=== PATIENT | male | born 1945 | race Caucasian/White ===

== ENCOUNTER 2018-07-23 14:45 | Observation (INO) | payer OTHER ==
[2018-07-23 16:52] LABS: BASO # 0.01 K/mm3 (0.0-2.0); BASO % 0.1 % (0.0-3.0); EOS % 0.4 % (1.5-5.0); GRAN # 5.56 (1.4-6.5); GRAN % 79.9 % (50.0-68.0); HEMOGLOBIN 13.8 g/dL (14.0-18.0); LYMPH # 1.2 (1.2-3.4); LYMPH % 16.6 % (22.0-35.0); MEAN CORPUSCULAR HEMOGLOBIN 30.9 pg (25.0-35.0); MEAN CORPUSCULAR HGB CONC 33.3 g/dl (31.0-37.0); MEAN PLATELET VOLUME 9.9 fl (7.0-11.0); MONO # 0.2 (0.1-0.6); RBC 4.46 10^6/uL (3.5-6.1); RED CELL DISTRIBUTION WIDTH 13.5 % (11.5-14.5); URINE BILIRUBIN NEGATIVE (NEGATIVE); URINE BLOOD NEGATIVE (NEGATIVE); URINE GLUCOSE (UA) NEGATIVE (NEGATIVE); URINE LEUKOCYTE ESTERASE NEGATIVE Leu/uL (NEGATIVE); URINE PROTEIN NEGATIVE mg/dL (<30 mg/dL); URINE UROBILINOGEN 0.2 E.U./dL (<1 E.U./dL)
[2018-07-23 16:53] LABS: INR 0.98; PARTIAL THROMBOPLASTIN TIME 27.8 Seconds (25.1-36.5); PROTHROMBIN TIME 11.2 SECONDS (9.4-12.5); URINE APPEARANCE CLEAR (CLEAR); URINE COLOR LIGHT YELLOW (YELLOW)
[2018-07-23 16:55] LABS: ALB/GLOB RATIO 1.1 (1.1-1.8); ALBUMIN 4.2 g/dL (3.0-4.8); ALT/SGPT 40 U/L (7-56); AST/SGOT 32 U/L (17-59); BLOOD UREA NITROGEN 17 mg/dL (7-21); CALCIUM 9.5 mg/dL (8.4-10.5); GFR NON-AFRICAN AMERICAN 59
[2018-07-23 17:05] LABS: TROPONIN I < 0.01 ng/mL
--- NOTE | 2018-07-23 17:05 | ED PDOC ---
Arrival/HPI - General Chief Complaint: Dizziness/Lightheaded Time Seen by Provider: 07/23/18 15:58 Historian: Patient - History of Present Illness Narrative History of Present Illness (Text): 07/23/18 17:17 73-year-old male with no past medical history presents today with dizziness and nausea and vomiting that started prior to arrival. Patient states after eating I he was feeling dizzy and nauseous and had an episode of vomiting. Patient states he was walking in the mall and had to sit down because he was so dizzy he felt off balance. He states he felt like he was going to fall down states he felt like he was drunk. Patient denies chest pain or shortness of breath. Denies abdominal pain. No fevers or chills. No neck or back pain. Past Medical History - Provider Review Nursing Documentation Reviewed: Yes - Travel History Have you recently traveled outside [place] w/in the past 3 mons?: No - Tetanus Immunization Tetanus Immunization: Unknown - Psychiatric Hx Substance Use: No - Anesthesia Hx Anesthesia: No Hx Anesthesia Reactions: No Hx Malignant Hyperthermia: No Family/Social History - Physician Review Nursing Documentation Reviewed: Yes Family/Social History: Unknown Family HX Smoking Status: Light Smoker < 10 Cigarettes Daily Hx Alcohol Use: No Hx Substance Use: No Allergies/Home Meds Allergies/Adverse Reactions: Allergies No Known Allergies Allergy (Verified 07/23/18 14:52) Home Medications: Home Meds Medication Instructions Recorded Confirmed No Known Home Med 07/23/18 07/23/18 Review of Systems - Review of Systems Constitutional: absent: Fatigue, Fevers Respiratory: absent: SOB, Cough Cardiovascular: absent: Chest Pain, Palpitations Gastrointestinal: Nausea, Vomiting. absent: Abdominal Pain, Constipation, Diarrhea Genitourinary Male: absent: Dysuria, Frequency, Hematuria Musculoskeletal: absent: Arthralgias, Back Pain, Neck Pain Skin: absent: Rash, Pruritis Neurological: Dizziness. absent: Headache Psychiatric: absent: Anxiety, Depression Physical Exam Vital Signs Reviewed: Yes Vital Signs Temp Pulse Resp BP Pulse Ox 07/23/18 14:46 97.7 F 63 18 158/77 H 100 Temperature: Afebrile Blood Pressure: Hypertensive Pulse: Regular Respiratory Rate: Normal Appearance: Positive for: Well-Appearing, Non-Toxic, Comfortable Pain Distress: None Mental Status: Positive for: Alert and Oriented X 3 - Systems Exam Head: Present: Atraumatic Pupils: Present: PERRL Extroacular Muscles: Present: EOMI Conjunctiva: Present: Normal Ears: Present: Normal, NORMAL TM Mouth: Present: Moist Mucous Membranes Pharnyx: Present: Normal. No: ERYTHEMA Nose (External): Present: Atraumatic Neck: Present: Normal Range of Motion, Trachea Midline. No: MIDLINE TENDERNESS, Paraspinal Tenderness Respiratory/Chest: Present: Clear to Auscultation, Good Air Exchange. No: Respiratory Distress, Accessory Muscle Use Cardiovascular: Present: Regular Rate and Rhythm, Normal S1, S2. No: Murmurs Abdomen: No: Tenderness, Distention, Peritoneal Signs, Rebound, Guarding Back: Present: Normal Inspection Upper Extremity: Present: Normal ROM Lower Extremity: Present: Normal ROM Neurological: Present: GCS=15, Speech Normal Skin: Present: Warm, Dry, Normal Color. No: Rashes Psychiatric: Present: Alert, Oriented x 3 Medical Decision Making ED Course and Treatment: 07/23/18 17:20 73-year-old male with dizziness nausea and vomiting prior to arrival no cp or sob. abdomen is soft non tender, non distended. CBC within normal limits CMP within normal limits Troponin within normal limits EKG shows normal sinus rhythm at [address] elevations normal intervals CAT scan of the head:FINDINGS: HEMORRHAGE: No acute parenchymal, subarachnoid or extra-axial hemorrhage. BRAIN: Mild chronic periventricular white matter ischemic changes seen extending peripherally into the deep white matter both cerebral hemispheres. Additionally, scattered subcortical ischemic changes felt to be present.. Note that the possibility of a small hyperacute infarct not excluded Moderate generalized volume loss. No obvious parenchymal nor extra-axial masses or collections. VENTRICLES: No obstructive hydrocephalus. CALVARIUM: Calvarium appears intact PARANASAL SINUSES: Unremarkable as visualized. No significant inflammatory changes. MASTOID AIR CELLS: Unremarkable as visualized. No inflammatory changes. OTHER FINDINGS: Changes of right-sided cataract surgery IMPRESSION: No acute intracranial hemorrhage. Mild chronic white matter ischemic changes. Mild generalized volume loss Cxr; WNL pt reassessment; pt feeling better. resting comfortably. pt with no PMD. no follow up. no prior hx of vertigo. will admit observational status to [facility] for dizziness, n/v. asa given pO. case discussed with dr. harmon. accepts observational status admission for dizziness nausea and vomiting. impression; dizziness, nausea, vomiting admit observational status. Reassessment Condition: Re-examined, Improved - RAD Interpretation Radiology Orders: 07/23/18 16:04 HEAD W/O CONTRAST [CT] Stat Disposition/Present on Arrival - Present on Arrival Any Indicators Present on Arrival: No History of DVT/PE: No History of Uncontrolled Diabetes: No Urinary Catheter: No History of Decub. Ulcer: No History Surgical Site Infection Following: None - Disposition Have Diagnosis and Disposition been Completed?: Yes Diagnosis: Dizziness, Nausea & vomiting Disposition: HOSPITALIZED Disposition Time: 17:24 Patient Plan: Observation Patient Problems: Current Active Problems Problem Status Onset Dizziness Acute Nausea & vomiting Acute Condition: FAIR Forms: [facility] (Yoruba)
--- NOTE | 2018-07-23 17:18 | CT ---
Date of service: 07/23/2018 PROCEDURE: CT HEAD WITHOUT CONTRAST. HISTORY: Dizziness with nausea and vomiting COMPARISON: None available. TECHNIQUE: Axial computed tomography images were obtained through the head/brain without intravenous contrast. Radiation dose: Total exam DLP = 995.45 mGy-cm. This CT exam was performed using one or more of the following dose reduction techniques: Automated exposure control, adjustment of the mA and/or kV according to patient size, and/or use of iterative reconstruction technique. FINDINGS: HEMORRHAGE: No acute parenchymal, subarachnoid or extra-axial hemorrhage. BRAIN: Mild chronic periventricular white matter ischemic changes seen extending peripherally into the deep white matter both cerebral hemispheres. Additionally, scattered subcortical ischemic changes felt to be present.. Note that the possibility of a small hyperacute infarct not excluded Moderate generalized volume loss. No obvious parenchymal nor extra-axial masses or collections. VENTRICLES: No obstructive hydrocephalus. CALVARIUM: Calvarium appears intact PARANASAL SINUSES: Unremarkable as visualized. No significant inflammatory changes. MASTOID AIR CELLS: Unremarkable as visualized. No inflammatory changes. OTHER FINDINGS: Changes of right-sided cataract surgery IMPRESSION: No acute intracranial hemorrhage. Mild chronic white matter ischemic changes. Mild generalized volume loss
--- NOTE | 2018-07-23 17:58 | RAD ---
Date of service: 07/23/2018 HISTORY: dizziness, vomiting COMPARISON: No prior. FINDINGS: LUNGS: No active pulmonary disease. PLEURA: No significant pleural effusion identified, no pneumothorax apparent. CARDIOVASCULAR: No atherosclerotic calcification present Normal. OSSEOUS STRUCTURES: No significant abnormalities. VISUALIZED UPPER ABDOMEN: Normal. OTHER FINDINGS: None. IMPRESSION: No active disease.
--- NOTE | 2018-07-23 19:51 | CARD ---
APPROVED REPORT Date of service: 07/23/2018 EKG Measurement Heart [id number] <Conclusion> Normal sinus rhythm Normal ECG
[2018-07-23] MEDS ORDERED: Sodium Chloride 0.9% 1,000 ML IV SCH (20:30)
--- NOTE | 2018-07-23 22:34 | CP.PCM.HP ---
<Bora Adan - Last Filed: 07/24/18 05:44> History of Present Illness - History of Present Illness History of Present Illness: H&P for Hospitalist Dr. Soraya Adan PGY2 CC: Dizziness and Vomiting Patient is 73 male with past medical history significant for gout who presents with complaints of dizziness, nausea, and vomiting. Patient states this morning he woke up feeling fine without any complaints or symptoms. He then states he went to [facility] ate 3 pancakes and 2 eggs. Within a couple of hours patient states he became dizzy while at the mall. Describes the dizziness and the world spinning around him in circles. Patient then became nauseas and began vomiting. He states after vomiting he started feeling better but came to the emergency department for further evaluation as he never felt this way before. Patient denies tinnitus, vision changes, fevers, chills, recent illness, headaches, current dizziness, nausea, or vomiting. PMD: Denies Surgical Hx: Appendectomy Social Hx: 1/2 ppd x 40 years, social alcohol use, denies illicit drug use Allergies: NKDA Medications: colchicine Family Hx: mother-stroke, father- emphysema Present on Admission - Present on Admission Any Indicators Present on Admission: No Review of Systems - Review of Systems All systems: reviewed and no additional remarkable complaints except (what's mentioned in HPI) Past Patient History - Tetanus Immunizations Tetanus Immunization: Unknown - Past Social History Smoking Status: Light Smoker < 10 Cigarettes Daily - PSYCHIATRIC Hx Substance Use: No - SURGICAL HISTORY Hx Surgeries: No - ANESTHESIA Hx Anesthesia: No Hx Anesthesia Reactions: No Hx Malignant Hyperthermia: No Meds Allergies/Adverse Reactions: Allergies Allergy/AdvReac Type Severity Reaction Status Date / Time No Known Allergies Allergy Verified 07/23/18 14:52 Physical Exam - Constitutional Appears: Non-toxic, No Acute Distress - Head Exam Head Exam: ATRAUMATIC, NORMAL INSPECTION, NORMOCEPHALIC - Eye Exam Eye Exam: EOMI, Normal appearance - ENT Exam ENT Exam: Mucous Membranes Moist - Neck Exam Neck exam: Positive for: Normal Inspection - Respiratory Exam Respiratory Exam: Rhonchi (diffuse B/L), NORMAL BREATHING PATTERN - Cardiovascular Exam Cardiovascular Exam: REGULAR RHYTHM, +S1, +S2 - GI/Abdominal Exam GI & Abdominal Exam: Normal Bowel Sounds, Soft - Extremities Exam Extremities exam: Positive for: normal inspection - Back Exam Back exam: NORMAL INSPECTION - Neurological Exam Neurological exam: Alert, CN II-XII Intact, Oriented x3 - Expanded Neurological Exam Expanded Cranial nerves: EOM's Intact: Normal, Facial Sensation: Normal, Tongue Deviation: Normal Cerebellar Function: Finger to Nose: Normal, Heel to Hameed: Normal, Romberg: Normal Upper motor neuron: Pronator Drift: Normal, Sensory Extinction: Normal Sensory exam: Lower Extremity 2 Point Discrimination: Normal, Lower Extremity Light Touch: Normal, Lower Extremity Pin Prick: Normal, Upper Extremity 2 Point Discrimination: Normal, Upper Extremity Light Touch: Normal, Upper Extremity Pin Prick: Normal Neuro motor strength exam: Left Upper Extremity: 5, Right Upper Extremity: 5, Left Lower Extremity: 5, Right Lower Extremity: 5 DTR: Patellar Left: 3+, Patellar Right: 3+ Coma Scale Eye Opening: SPONTANEOUS Coma Scale Motor Response: OBEYS COMMANDS - Psychiatric Exam Psychiatric exam: Normal Affect, Normal Mood - Skin Skin Exam: Normal Color, Warm Results - Vital Signs Recent Vital Signs: Last Vital Signs Temp 97.7 F 07/23/18 14:46 Pulse 62 07/23/18 21:44 Resp 18 07/23/18 21:44 BP 114/69 07/23/18 21:44 Pulse Ox 98 07/23/18 21:44 - Labs Result Diagrams: 07/23/18 16:38 07/23/18 16:38 Labs: Laboratory Results - last 24 hr 07/23/18 07/23/18 07/23/18 16:38 16:38 16:38 WBC 7.0 RBC 4.46 Hgb 13.8 L Hct 41.5 L MCV 93.0 MCH 30.9 MCHC 33.3 RDW 13.5 Plt Count 287 MPV 9.9 Gran % 79.9 H Lymph % (Auto) 16.6 L Kane % (Auto) 3.0 Eos % (Auto) 0.4 L Baso % (Auto) 0.1 Gran # 5.56 Lymph # (Auto) 1.2 Kane # (Auto) 0.2 Eos # (Auto) 0.0 Baso # (Auto) 0.01 PT INR APTT Sodium 139 Potassium 4.3 Chloride 107 Carbon Dioxide 26 Anion Gap 11 BUN 17 Creatinine 1.2 Est GFR ( Amer) > 60 Est GFR (Non-Af Amer) 59 Random Glucose 125 H Calcium 9.5 Total Bilirubin 0.7 AST 32 ALT 40 Alkaline Phosphatase 71 Lactate Dehydrogenase 409 Total Creatine Kinase 94 Troponin I < 0.01 Total Protein 8.0 Albumin 4.2 Globulin 3.8 Albumin/Globulin Ratio 1.1 Urine Color Light yellow Urine Appearance Clear Urine pH 6.0 Ur Specific [place] 1.025 Urine Protein Negative Urine Glucose (UA) Negative Urine Ketones 15 H Urine Blood Negative Urine Nitrate Negative Urine Bilirubin Negative Urine Urobilinogen 0.2 Ur Leukocyte Esterase Negative 07/23/18 16:38 WBC RBC Hgb Hct MCV MCH MCHC RDW Plt Count MPV Gran % Lymph % (Auto) Kane % (Auto) Eos % (Auto) Baso % (Auto) Gran # Lymph # (Auto) Kane # (Auto) Eos # (Auto) Baso # (Auto) PT 11.2 INR 0.98 APTT 27.8 Sodium Potassium Chloride Carbon Dioxide Anion Gap BUN Creatinine Est GFR ( Amer) Est GFR (Non-Af Amer) Random Glucose Calcium Total Bilirubin AST ALT Alkaline Phosphatase Lactate Dehydrogenase Total Creatine Kinase Troponin I Total Protein Albumin Globulin Albumin/Globulin Ratio Urine Color Urine Appearance Urine pH Ur Specific [place] Urine Protein Urine Glucose (UA) Urine Ketones Urine Blood Urine Nitrate Urine Bilirubin Urine Urobilinogen Ur Leukocyte Esterase Assessment & Plan - Assessment and Plan (Free Text) Assessment: Dizziness -Secondary to vertigo vs. orthoastatic hypotension vs. dumping syndrome -IVF@75 -Carotid duplex -Echo -Lipid panel, hgA1c, TSH -Neurochecks -PT/OT <Jennifer Lira - Last Filed: 07/24/18 19:17> Results - Vital Signs Recent Vital Signs: Last Vital Signs Temp 97.5 F L 07/24/18 17:24 Pulse 60 07/24/18 17:24 Resp 20 07/24/18 17:24 BP 131/80 07/24/18 17:24 Pulse Ox 98 07/24/18 17:24 - Labs Result Diagrams: 07/24/18 05:30 07/24/18 05:30 Labs: Laboratory Results - last 24 hr 07/23/18 07/23/18 07/24/18 23:34 23:35 05:30 WBC 6.8 RBC 4.42 Hgb 13.5 L Hct 41.3 L MCV 93.4 MCH 30.5 MCHC 32.7 RDW 13.7 Plt Count 291 MPV 10.3 Sodium Potassium Chloride Carbon Dioxide Anion Gap BUN Creatinine Est GFR ( Amer) Est GFR (Non-Af Amer) Random Glucose Calcium Phosphorus Magnesium Total Bilirubin AST ALT Alkaline Phosphatase Troponin I Total Protein Albumin Globulin Albumin/Globulin Ratio Triglycerides Cholesterol LDL Cholesterol Direct HDL Cholesterol Vitamin B12 175 L TSH 3rd Generation 1.30 07/24/18 07/24/18 05:30 17:58 WBC RBC Hgb Hct MCV MCH MCHC RDW Plt Count MPV Sodium 142 Potassium 3.8 Chloride 108 H Carbon Dioxide 29 Anion Gap 9 L BUN 17 Creatinine 1.1 Est GFR ( Amer) > 60 Est GFR (Non-Af Amer) > 60 Random Glucose 94 Calcium 9.0 Phosphorus 2.9 Magnesium 2.1 Total Bilirubin 1.0 AST 28 ALT 35 Alkaline Phosphatase 59 Troponin I < 0.01 Total Protein 7.1 Albumin 3.7 Globulin 3.4 Albumin/Globulin Ratio 1.1 Triglycerides 132 Cholesterol 167 LDL Cholesterol Direct 103 HDL Cholesterol 33 Vitamin B12 TSH 3rd Generation Attending/Attestation - Attestation I have personally seen and examined this patient.: Yes I have fully participated in the care of the patient.: Yes I have reviewed all pertinent clinical information: Yes
[2018-07-24 07:00] LABS: HEMOGLOBIN 13.5 g/dL (14.0-18.0); MEAN CELL VOLUME 93.4 fl (80.0-105.0); MEAN CORPUSCULAR HEMOGLOBIN 30.5 pg (25.0-35.0); MEAN CORPUSCULAR HGB CONC 32.7 g/dl (31.0-37.0); MEAN PLATELET VOLUME 10.3 fl (7.0-11.0); RBC 4.42 10^6/uL (3.5-6.1); RED CELL DISTRIBUTION WIDTH 13.7 % (11.5-14.5); WHITE BLOOD COUNT 6.8 10^3/uL (4.5-11.0)
[2018-07-24 07:07] LABS: ALB/GLOB RATIO 1.1 (1.1-1.8); ALBUMIN 3.7 g/dL (3.0-4.8); ALT/SGPT 35 U/L (7-56); AST/SGOT 28 U/L (17-59); BLOOD UREA NITROGEN 17 mg/dL (7-21); GFR NON-AFRICAN AMERICAN > 60; HDL CHOLESTEROL 33 mg/dL (29-60)
[2018-07-24 07:17] LABS: LDL CHOLESTEROL 103 mg/dL (0-129)
[2018-07-24 09:02] VITALS: RESP 20
--- NOTE | 2018-07-24 14:00 | CP.PCM.DIS ---
<Veronica Jurado - Last Filed: 07/24/18 13:57> Provider - Provider Date of Admission: 07/23/18 18:09 Attending physician: Mai Perrin MD Primary care physician: Dr. Cano Consults: 07/24/18 09:18 Consult [Physician Consult] Routine Comment: Consulting Provider: Manuel Callejas Consulting Physician: Manuel Callejas Reason for Consult: dizziness Time Spent in preparation of Discharge (in minutes): 45 Diagnosis - Discharge Diagnosis (1) Dizziness Status: Acute (2) Nausea & vomiting Status: Acute Hospital Course - Lab Results Lab Results: Most Recent Lab Values WBC 6.8 10^3/uL (4.5-11.0) 07/24/18 05:30 RBC 4.42 10^6/uL (3.5-6.1) 07/24/18 05:30 Hgb 13.5 g/dL (14.0-18.0) L 07/24/18 05:30 Hct 41.3 % (42.0-52.0) L 07/24/18 05:30 MCV 93.4 fl (80.0-105.0) 07/24/18 05:30 MCH 30.5 pg (25.0-35.0) 07/24/18 05:30 MCHC 32.7 g/dl (31.0-37.0) 07/24/18 05:30 RDW 13.7 % (11.5-14.5) 07/24/18 05:30 Plt Count 291 10^3/uL (120.0-450.0) 07/24/18 05:30 MPV 10.3 fl (7.0-11.0) 07/24/18 05:30 Gran % 79.9 % (50.0-68.0) H 07/23/18 16:38 Lymph % (Auto) 16.6 % (22.0-35.0) L 07/23/18 16:38 [place] % (Auto) 3.0 % (1.0-6.0) 07/23/18 16:38 Eos % (Auto) 0.4 % (1.5-5.0) L 07/23/18 16:38 Baso % (Auto) 0.1 % (0.0-3.0) 07/23/18 16:38 Gran # 5.56 (1.4-6.5) 07/23/18 16:38 Lymph # (Auto) 1.2 (1.2-3.4) 07/23/18 16:38 [place] # (Auto) 0.2 (0.1-0.6) 07/23/18 16:38 Eos # (Auto) 0.0 (0.0-0.7) 07/23/18 16:38 Baso # (Auto) 0.01 K/mm3 (0.0-2.0) 07/23/18 16:38 PT 11.2 SECONDS (9.4-12.5) 07/23/18 16:38 INR 0.98 07/23/18 16:38 APTT 27.8 Seconds (25.1-36.5) 07/23/18 16:38 Sodium 142 mmol/L (132-148) 07/24/18 05:30 Potassium 3.8 mmol/L (3.6-5.0) 07/24/18 05:30 Chloride 108 mmol/L (98-107) H 07/24/18 05:30 Carbon Dioxide 29 mmol/L (21-33) 07/24/18 05:30 Anion Gap 9 (10-20) L 07/24/18 05:30 BUN 17 mg/dL (7-21) 07/24/18 05:30 Creatinine 1.1 mg/dl (0.8-1.5) 07/24/18 05:30 Est GFR ( Amer) > 60 07/24/18 05:30 Est GFR (Non-Af Amer) > 60 07/24/18 05:30 Random Glucose 94 mg/dL (70-110) 07/24/18 05:30 Calcium 9.0 mg/dL (8.4-10.5) 07/24/18 05:30 Phosphorus 2.9 mg/dL (2.5-4.5) 07/24/18 05:30 Magnesium 2.1 mg/dL (1.7-2.2) 07/24/18 05:30 Total Bilirubin 1.0 mg/dL (0.2-1.3) 07/24/18 05:30 AST 28 U/L (17-59) 07/24/18 05:30 ALT 35 U/L (7-56) 07/24/18 05:30 Alkaline Phosphatase 59 U/L (38-126) 07/24/18 05:30 Lactate Dehydrogenase 409 U/L (333-699) 07/23/18 16:38 Total Creatine Kinase 94 U/L (35-230) 07/23/18 16:38 Troponin I < 0.01 ng/mL 07/23/18 16:38 Total Protein 7.1 g/dL (5.8-8.3) 07/24/18 05:30 Albumin 3.7 g/dL (3.0-4.8) 07/24/18 05:30 Globulin 3.4 gm/dL 07/24/18 05:30 Albumin/Globulin Ratio 1.1 (1.1-1.8) 07/24/18 05:30 Triglycerides 132 mg/dL (35-160) 07/24/18 05:30 Cholesterol 167 mg/dL (130-200) 07/24/18 05:30 LDL Cholesterol Direct 103 mg/dL (0-129) 07/24/18 05:30 HDL Cholesterol 33 mg/dL (29-60) 07/24/18 05:30 Vitamin B12 175 pg/mL (239-931) L 07/23/18 23:34 TSH 3rd Generation 1.30 mIU/mL (0.46-4.68) 07/23/18 23:35 Urine Color Light yellow (YELLOW) 07/23/18 16:38 Urine Appearance Clear (CLEAR) 07/23/18 16:38 Urine pH 6.0 (4.7-8.0) 07/23/18 16:38 Ur Specific [place] 1.025 (1.005-1.035) 07/23/18 16:38 Urine Protein Negative mg/dL (<30 mg/dL) 07/23/18 16:38 Urine Glucose (UA) Negative mg/dL (NEGATIVE) 07/23/18 16:38 Urine Ketones 15 mg/dL (NEGATIVE) H 07/23/18 16:38 Urine Blood Negative (NEGATIVE) 07/23/18 16:38 Urine Nitrate Negative (NEGATIVE) 07/23/18 16:38 Urine Bilirubin Negative (NEGATIVE) 07/23/18 16:38 Urine Urobilinogen 0.2 E.U./dL (<1 E.U./dL) 07/23/18 16:38 Ur Leukocyte Esterase Negative Michael/uL (NEGATIVE) 07/23/18 16:38 - Hospital Course Hospital Course: PGY1 Hospital Course and Discharge Summary for Dr. Perrin Mr. Pro is a 73-year-old male with past medical history significant for gout who presented with complaints of dizziness, nausea, and vomiting. Patient states yesterday morning he woke up feeling fine without any complaints or symptoms. Patient then stated he went to [facility] ate 3 pancakes and 2 eggs. Within a couple of hours patient stated he became dizzy while at the mall. Described the dizziness and the world spinning around him in circles. Patient then became nauseas and began vomiting. Patient stated after vomiting he started feeling better but came to the emergency department for further evaluation, as he never felt this way before. Please see chart for details. Patient was subsequently admitted for dizziness likely secondary to vertigo. Patient was treated with IVF. Troponins, Lipid panel, Vitamin B12, and TSH were obtained. Patient was found to have a deficiency in Vitamin B12. Troponins were negative, lipid panel was within normal limits, TSH was within normal limits. Carotid duplex and ECHO were obtained. Neurology was consulted (Dr. Callejas). MRI was recommended, however the Patient refused. Patient was given aspirin. PT evaluation and treatment was obtained and recommended the Patient is able to walk without assistance and/or difficulty. Please see chart for details. On day of discharge, the Patient was medically stable and hemodynamically optimized for discharge to home. Patient wanted to go home. Patient was provided with detailed discharge instructions that were provided in detail both verbally and in writing to the level of the Patient's comprehension. Patient understands and agrees with all instructions. Please see chart for details. Discharge Instructions Provided to Patient: Follow up with your primary care physician within 3-5 days upon discharge from the hospital You may obtain your ECHO results and Carotid Duplex results from medical records next week During your hospitalization, you were prescribed daily vitamin B12 supplement Cyanocobalamin B12 1000mcg tab. Take 1 tab daily for 30 days. Aspirin 81 mg Chew daily. Follow-up with your primary care physician for refills. If your symptoms return, immediately go to your nearest ED Patient seen and case discussed in detail with Dr. Marychuy Jurado PGY1 Discharge Exam - Additional Findings Additional findings: - Constitutional Appears: Non-toxic, No Acute Distress - Head Exam Head Exam: ATRAUMATIC, NORMAL INSPECTION, NORMOCEPHALIC - Eye Exam Eye Exam: EOMI, Normal appearance - ENT Exam ENT Exam: Mucous Membranes Moist - Neck Exam Neck exam: Positive for: Normal Inspection - Respiratory Exam Respiratory Exam: NORMAL BREATHING PATTERN - Cardiovascular Exam Cardiovascular Exam: REGULAR RHYTHM, +S1, +S2 - GI/Abdominal Exam GI & Abdominal Exam: Normal Bowel Sounds, Soft - Extremities Exam Extremities exam: Positive for: normal inspection - Back Exam Back exam: NORMAL INSPECTION - Neurological Exam Neurological exam: Alert, CN II-XII Intact, Oriented x3 - Expanded Neurological Exam Expanded Cranial nerves: EOM's Intact: Normal, Facial Sensation: Normal, Tongue Deviation: Normal Cerebellar Function: Finger to Nose: Normal, Heel to Hameed: Normal, Romberg: Normal Upper motor neuron: Pronator Drift: Normal, Sensory Extinction: Normal Sensory exam: Lower Extremity 2 Point Discrimination: Normal, Lower Extremity Light Touch: Normal, Lower Extremity Pin Prick: Normal, Upper Extremity 2 Point Discrimination: Normal, Upper Extremity Light Touch: Normal, Upper Extremity Pin Prick: Normal Neuro motor strength exam: Left Upper Extremity: 5, Right Upper Extremity: 5, Left Lower Extremity: 5, Right Lower Extremity: 5 DTR: Patellar Left: 3+, Patellar Right: 3+ Coma Scale Eye Opening: SPONTANEOUS Coma Scale Motor Response: OBEYS COMMANDS - Psychiatric Exam Psychiatric exam: Normal Affect, Normal Mood - Skin Skin Exam: Normal Color, Warm Discharge Plan - Discharge Medications Prescriptions: Aspirin [Aspirin Chewable] 81 mg PO DAILY #30 ctb Cyanocobalamin [Vitamin B12 1000 mcg Tab] 1,000 mcg PO DAILY #30 tab - Follow Up Plan Condition: FAIR Disposition: HOME/ ROUTINE Instructions: Dizziness, Nonvertigo, (DC) Additional Instructions: Discharge Instructions Provided to Patient: Follow up with your primary care physician within 3-5 days upon discharge from the hospital You may obtain your ECHO results and Carotid Duplex results from medical records next week During your hospitalization, you were prescribed daily vitamin B12 supplement Cyanocobalamin B12 1000mcg tab. Take 1 tab daily for 30 days. Aspirin 81 mg Chew daily. Follow-up with your primary care physician for refills. If your symptoms return, immediately go to your nearest ED <Mai Perrin - Last Filed: 07/25/18 11:28> Provider - Provider Date of Admission: 07/23/18 18:09 Attending physician: Mai Perrin MD Consults: 07/24/18 09:18 Consult [Physician Consult] Routine Comment: Consulting Provider: Manuel Callejas Consulting Physician: Manuel Callejas Reason for Consult: dizziness Hospital Course - Lab Results Lab Results: Most Recent Lab Values WBC 6.8 10^3/uL (4.5-11.0) 07/24/18 05:30 RBC 4.42 10^6/uL (3.5-6.1) 07/24/18 05:30 Hgb 13.5 g/dL (14.0-18.0) L 07/24/18 05:30 Hct 41.3 % (42.0-52.0) L 07/24/18 05:30 MCV 93.4 fl (80.0-105.0) 07/24/18 05:30 MCH 30.5 pg (25.0-35.0) 07/24/18 05:30 MCHC 32.7 g/dl (31.0-37.0) 07/24/18 05:30 RDW 13.7 % (11.5-14.5) 07/24/18 05:30 Plt Count 291 10^3/uL (120.0-450.0) 07/24/18 05:30 MPV 10.3 fl (7.0-11.0) 07/24/18 05:30 Gran % 79.9 % (50.0-68.0) H 07/23/18 16:38 Lymph % (Auto) 16.6 % (22.0-35.0) L 07/23/18 16:38 [place] % (Auto) 3.0 % (1.0-6.0) 07/23/18 16:38 Eos % (Auto) 0.4 % (1.5-5.0) L 07/23/18 16:38 Baso % (Auto) 0.1 % (0.0-3.0) 07/23/18 16:38 Gran # 5.56 (1.4-6.5) 07/23/18 16:38 Lymph # (Auto) 1.2 (1.2-3.4) 07/23/18 16:38 [place] # (Auto) 0.2 (0.1-0.6) 07/23/18 16:38 Eos # (Auto) 0.0 (0.0-0.7) 07/23/18 16:38 Baso # (Auto) 0.01 K/mm3 (0.0-2.0) 07/23/18 16:38 PT 11.2 SECONDS (9.4-12.5) 07/23/18 16:38 INR 0.98 07/23/18 16:38 APTT 27.8 Seconds (25.1-36.5) 07/23/18 16:38 Sodium 142 mmol/L (132-148) 07/24/18 05:30 Potassium 3.8 mmol/L (3.6-5.0) 07/24/18 05:30 Chloride 108 mmol/L (98-107) H 07/24/18 05:30 Carbon Dioxide 29 mmol/L (21-33) 07/24/18 05:30 Anion Gap 9 (10-20) L 07/24/18 05:30 BUN 17 mg/dL (7-21) 07/24/18 05:30 Creatinine 1.1 mg/dl (0.8-1.5) 07/24/18 05:30 Est GFR ( Amer) > 60 07/24/18 05:30 Est GFR (Non-Af Amer) > 60 07/24/18 05:30 Random Glucose 94 mg/dL (70-110) 07/24/18 05:30 Hemoglobin A1c 5.3 % (4.2-6.5) 07/23/18 23:37 Calcium 9.0 mg/dL (8.4-10.5) 07/24/18 05:30 Phosphorus 2.9 mg/dL (2.5-4.5) 07/24/18 05:30 Magnesium 2.1 mg/dL (1.7-2.2) 07/24/18 05:30 Total Bilirubin 1.0 mg/dL (0.2-1.3) 07/24/18 05:30 AST 28 U/L (17-59) 07/24/18 05:30 ALT 35 U/L (7-56) 07/24/18 05:30 Alkaline Phosphatase 59 U/L (38-126) 07/24/18 05:30 Lactate Dehydrogenase 409 U/L (333-699) 07/23/18 16:38 Total Creatine Kinase 94 U/L (35-230) 07/23/18 16:38 Troponin I < 0.01 ng/mL 07/24/18 17:58 Total Protein 7.1 g/dL (5.8-8.3) 07/24/18 05:30 Albumin 3.7 g/dL (3.0-4.8) 07/24/18 05:30 Globulin 3.4 gm/dL 07/24/18 05:30 Albumin/Globulin Ratio 1.1 (1.1-1.8) 07/24/18 05:30 Triglycerides 132 mg/dL (35-160) 07/24/18 05:30 Cholesterol 167 mg/dL (130-200) 07/24/18 05:30 LDL Cholesterol Direct 103 mg/dL (0-129) 07/24/18 05:30 HDL Cholesterol 33 mg/dL (29-60) 07/24/18 05:30 Vitamin B12 175 pg/mL (239-931) L 07/23/18 23:34 TSH 3rd Generation 1.30 mIU/mL (0.46-4.68) 07/23/18 23:35 Urine Color Light yellow (YELLOW) 07/23/18 16:38 Urine Appearance Clear (CLEAR) 07/23/18 16:38 Urine pH 6.0 (4.7-8.0) 07/23/18 16:38 Ur Specific [place] 1.025 (1.005-1.035) 07/23/18 16:38 Urine Protein Negative mg/dL (<30 mg/dL) 07/23/18 16:38 Urine Glucose (UA) Negative mg/dL (NEGATIVE) 07/23/18 16:38 Urine Ketones 15 mg/dL (NEGATIVE) H 07/23/18 16:38 Urine Blood Negative (NEGATIVE) 07/23/18 16:38 Urine Nitrate Negative (NEGATIVE) 07/23/18 16:38 Urine Bilirubin Negative (NEGATIVE) 07/23/18 16:38 Urine Urobilinogen 0.2 E.U./dL (<1 E.U./dL) 07/23/18 16:38 Ur Leukocyte Esterase Negative Michael/uL (NEGATIVE) 07/23/18 16:38 Attending/Attestation - Attestation I have personally seen and examined this patient.: Yes I have fully participated in the care of the patient.: Yes I have reviewed all pertinent clinical information, including history, physical exam and plan: Yes Notes (Text): 07/25/18 11:25 Attending note; Patient seen and examined with resident this morning. Patient denies any dizziness. Denies any chest pain, shortness of breath. Denies any nausea, vomiting. Tolerating diet. Ambulated with physical therapy with no symptoms. Patient is a 73-year-old male with past medical history significant for gout who presented with complaints of dizziness, nausea, and vomiting. Patient states yesterday morning he woke up feeling fine without any complaints or symptoms. Patient then stated he went to [facility] ate 3 pancakes and 2 eggs. Within a couple of hours patient stated he [place] the mall. Patient also complaining of dizziness and room spinning. 1. Possible benign positional vertigo; currently asymptomatic. CT head is negative. Carotid Doppler and echo done and results pending. Preliminary negative for any acute findings. PT evaluation appreciated. Patient will be discharged home with aspirin and meclizine when necessary. Addendum; Patient developed dizziness and nausea and vomiting. Discharge held. Neurology evaluation appreciated. Patient was sent for CTA, MRI. We will get PT evaluation again for hilda maneuver training. 07/25/18 11:26
--- NOTE | 2018-07-24 14:41 | CP.PCM.CON ---
History of Present Illness - History of Present Illness History of Present Illness: Neurology Consultation Note: Mr. Pro is a 73-year-old man, referred to me by Dr. Perrin, with a past medical history of gout and a 20 pack-year smoking history who developed vertigo, nausea and vomiting while ambulating in the mall after a meal. After vomiting, his symptoms improved significantly. He is feeling better. He did not have any hearing changes, headache, weakness or sensory deficits. However, he said that 3 days ago, he had an experience where he was having some ringing in his right ear. He also states that sometimes his hearing on the right is not as clear. Review of Systems - Constitutional Constitutional: As Per HPI - EENT Eyes: absent: As Per HPI, Blind Spots, Blurred Vision, Change in Vision, D ecreased Night Vision, Diplopia, Discharge, Dry Eye, Exophthalmos, Floaters, Irritation, Itchy Eyes, Loss of Peripheral Vision, Pain, Photophobia, Requires Corrective Lenses, Sees Flashes, Spots in Vision, Tunnel Vision, Other Visual Disturbances, Loss of Vision, Other Ears: absent: As Per HPI, Decreased Hearing, Ear Discharge, Ear Pain, Tinnitus, Abnormal Hearing, Disequilibrium, Dizziness, Other Nose/Mouth/Throat: absent: As Per HPI, Epistaxis, Nasal Congestion, Nasal Discharge, Nasal Obstruction, Nasal Trauma, Nose Pain, Post Nasal Drip, Sinus Pain, Sinus Pressure, Bleeding Gums, Change in Voice, Dental Pain, Dry Mouth, Dysphagia, Halitosis, Hoarsness, Lip Swelling, Mouth Lesions, Mouth Pain, Odynophagia, Sore Throat, Throat Swelling, Tongue Swelling, Facial Pain, Neck Pain, Neck Mass, Other - Cardiovascular Cardiovascular: absent: As Per HPI, Acrocyanosis, Chest Pain, Chest Pain at Rest, Chest Pain with Activity, Claudication, Diaphoresis, Dyspnea, Dyspnea on Exertion, Edema, Irregular Heart Rhythm, Pain Radiating to Arm/Neck/Jaw, Leg Edema, Leg Ulcers, Lightheadedness, Orthopnea, Palpitations, Paroxysmal Nocturnal Dyspnea, Pedal Edema, Radiating Pain, Rapid Heart Rate, Slow Heart Rate, Syncope, Other - Respiratory Respiratory: absent: As Per HPI, Cough, Dyspnea, Hemoptysis, Dyspnea on Exertion, Wheezing, Snoring, Stridor, Pain on Inspiration, Chest Congestion, Excessive Mucous Production, Change in Mucous Color, Pain with Coughing, Other - Gastrointestinal Gastrointestinal: absent: As Per HPI, Abdominal Pain, Belching, Bloating, Change in Bowel Habits, Change in Stool Character, Coffee Ground Emesis, Constipation, Cramping, Diarrhea, Dyspepsia, Dysphagia, Early Satiety, Excessive Flatus, Fecal Incontinence, Heartburn, Hematemesis, Hematochezia, Loose Stools, Melena, Nausea, Odynophagia, Temesmus, Vomiting, Other - Neurological Neurological: As Per HPI - Psychiatric Psychiatric: absent: As Per HPI, Abnormal Sleep Pattern, Anhedonia, Anxiety, Auditory Hallucinations, Behavioral Changes, Change in Appetite, Change in Libido, Confusion, Depression, Difficulty Concentrating, Hallucinations, Homicidal Ideation, Hopelessness, Irritability, Memory Loss, Mood Swings, Panic Attacks, Paranoia, Suicidal Ideation, Visual Hallucinations, Tactile Hallucinations, Other - Endocrine Endocrine: absent: As Per HPI, Change in Body Appearance, Change in Libido, Cold Intolorance, Deepening of Voice, Excessive Sweating, Fatigue, Flushing, Heat Intolorance, Increase in Ring/Shoe/Hat Size, Palpitations, Polydipsia, Polyphagia, Polyuria, Other - Hematologic/Lymphatic Hematologic: absent: As Per HPI, Easy Bleeding, Easy Bruising, Lymphadenopathy, Other Past Patient History - Tetanus Immunizations Tetanus Immunization: Unknown - Past Social History Smoking Status: Light Smoker < 10 Cigarettes Daily - MUSCULOSKELETAL/RHEUMATOLOGICAL Hx Falls: No - PSYCHIATRIC Hx Substance Use: No - SURGICAL HISTORY Hx Surgeries: No - ANESTHESIA Hx Anesthesia: No Hx Anesthesia Reactions: No Hx Malignant Hyperthermia: No Meds Home Medications: Home Medication List Medication Instructions Recorded Confirmed Type Aspirin [Aspirin Chewable] 81 mg PO DAILY #30 ctb 07/24/18 Rx Cyanocobalamin [Vitamin B12 1000 1,000 mcg PO DAILY #30 tab 07/24/18 Rx mcg Tab] Allergies/Adverse Reactions: Allergies Allergy/AdvReac Type Severity Reaction Status Date / Time No Known Allergies Allergy Verified 07/23/18 14:52 - Medications Medications: Current Medications Aspirin (Ecotrin) 81 mg PO DAILY [facility] Sodium Chloride (Sodium Chloride 0.9%) 1,000 mls @ 75 mls/hr IV .[id number] EMIR Last Admin: 07/23/18 21:00 Dose: 75 mls/hr Physical Exam - Constitutional Appears: Well - Head Exam Head Exam: ATRAUMATIC, NORMAL INSPECTION, NORMOCEPHALIC - Eye Exam Eye Exam: EOMI, Normal appearance, PERRL Pupil Exam: NORMAL ACCOMODATION, PERRL - ENT Exam ENT Exam: Mucous Membranes Moist, Normal Exam - Neck Exam Neck exam: Positive for: Normal Inspection - Respiratory Exam Respiratory Exam: Clear to Auscultation Bilateral, NORMAL BREATHING PATTERN - Cardiovascular Exam Cardiovascular Exam: REGULAR RHYTHM, +S1, +S2 - GI/Abdominal Exam GI & Abdominal Exam: Normal Bowel Sounds, Soft. absent: Tenderness - Rectal Exam Rectal Exam: Deferred - Extremities Exam Extremities exam: Positive for: normal inspection - Back Exam Back exam: NORMAL INSPECTION - Neurological Exam Neurological exam: Alert, CN II-XII Intact, Normal Gait, Oriented x3, Reflexes Normal Additional comments: Nystagmus noted on right lateral gaze with fast phase to the left. - Psychiatric Exam Psychiatric exam: Normal Affect, Normal Mood - Skin Skin Exam: Dry, Intact, Normal Color, Warm Results - Vital Signs Recent Vital Signs: Last Vital Signs Temp 97.8 F 07/24/18 09:01 Pulse 60 07/24/18 10:00 Resp 20 07/24/18 09:01 BP 134/77 07/24/18 09:01 Pulse Ox 97 07/24/18 09:01 - Labs Result Diagrams: 07/24/18 05:30 07/24/18 05:30 Labs: Laboratory Results - last 24 hr 07/23/18 07/23/18 07/23/18 16:38 16:38 16:38 WBC 7.0 RBC 4.46 Hgb 13.8 L Hct 41.5 L MCV 93.0 MCH 30.9 MCHC 33.3 RDW 13.5 Plt Count 287 MPV 9.9 Gran % 79.9 H Lymph % (Auto) 16.6 L [place] % (Auto) 3.0 Eos % (Auto) 0.4 L Baso % (Auto) 0.1 Gran # 5.56 Lymph # (Auto) 1.2 [place] # (Auto) 0.2 Eos # (Auto) 0.0 Baso # (Auto) 0.01 PT INR APTT Sodium 139 Potassium 4.3 Chloride 107 Carbon Dioxide 26 Anion Gap 11 BUN 17 Creatinine 1.2 Est GFR ( Amer) > 60 Est GFR (Non-Af Amer) 59 Random Glucose 125 H Calcium 9.5 Phosphorus Magnesium Total Bilirubin 0.7 AST 32 ALT 40 Alkaline Phosphatase 71 Lactate Dehydrogenase 409 Total Creatine Kinase 94 Troponin I < 0.01 Total Protein 8.0 Albumin 4.2 Globulin 3.8 Albumin/Globulin Ratio 1.1 Triglycerides Cholesterol LDL Cholesterol Direct HDL Cholesterol Vitamin B12 TSH 3rd Generation Urine Color Light yellow Urine Appearance Clear Urine pH 6.0 Ur Specific [place] 1.025 Urine Protein Negative Urine Glucose (UA) Negative Urine Ketones 15 H Urine Blood Negative Urine Nitrate Negative Urine Bilirubin Negative Urine Urobilinogen 0.2 Ur Leukocyte Esterase Negative 07/23/18 07/23/18 07/23/18 16:38 23:34 23:35 WBC RBC Hgb Hct MCV MCH MCHC RDW Plt Count MPV Gran % Lymph % (Auto) [place] % (Auto) Eos % (Auto) Baso % (Auto) Gran # Lymph # (Auto) [place] # (Auto) Eos # (Auto) Baso # (Auto) PT 11.2 INR 0.98 APTT 27.8 Sodium Potassium Chloride Carbon Dioxide Anion Gap BUN Creatinine Est GFR ( Amer) Est GFR (Non-Af Amer) Random Glucose Calcium Phosphorus Magnesium Total Bilirubin AST ALT Alkaline Phosphatase Lactate Dehydrogenase Total Creatine Kinase Troponin I Total Protein Albumin Globulin Albumin/Globulin Ratio Triglycerides Cholesterol LDL Cholesterol Direct HDL Cholesterol Vitamin B12 175 L TSH 3rd Generation 1.30 Urine Color Urine Appearance Urine pH Ur Specific [place] Urine Protein Urine Glucose (UA) Urine Ketones Urine Blood Urine Nitrate Urine Bilirubin Urine Urobilinogen Ur Leukocyte Esterase 07/24/18 07/24/18 05:30 05:30 WBC 6.8 RBC 4.42 Hgb 13.5 L Hct 41.3 L MCV 93.4 MCH 30.5 MCHC 32.7 RDW 13.7 Plt Count 291 MPV 10.3 Gran % Lymph % (Auto) [place] % (Auto) Eos % (Auto) Baso % (Auto) Gran # Lymph # (Auto) [place] # (Auto) Eos # (Auto) Baso # (Auto) PT INR APTT Sodium 142 Potassium 3.8 Chloride 108 H Carbon Dioxide 29 Anion Gap 9 L BUN 17 Creatinine 1.1 Est GFR ( Amer) > 60 Est GFR (Non-Af Amer) > 60 Random Glucose 94 Calcium 9.0 Phosphorus 2.9 Magnesium 2.1 Total Bilirubin 1.0 AST 28 ALT 35 Alkaline Phosphatase 59 Lactate Dehydrogenase Total Creatine Kinase Troponin I Total Protein 7.1 Albumin 3.7 Globulin 3.4 Albumin/Globulin Ratio 1.1 Triglycerides 132 Cholesterol 167 LDL Cholesterol Direct 103 HDL Cholesterol 33 Vitamin B12 TSH 3rd Generation Urine Color Urine Appearance Urine pH Ur Specific [place] Urine Protein Urine Glucose (UA) Urine Ketones Urine Blood Urine Nitrate Urine Bilirubin Urine Urobilinogen Ur Leukocyte Esterase Assessment & Plan (1) Peripheral vertigo Assessment and Plan: With the patient's smoking history and age, I recommend obtaining a CTA of the head/neck to rule out vertebro-basilar insufficiency. Otherwise, this is likely peripheral vertigo and the patient may benefit from meclizine and Eply maneuver with vestibular rehab as an outpatient, if the symptoms return or persist. Thank you for this consultation. Status: Acute
[2018-07-24] MEDS ORDERED: Iohexol 350 MG/100 ML VIAL ONE (15:15)
--- NOTE | 2018-07-24 16:37 | CT ---
Date of service: 07/24/2018 PROCEDURE: CT Angiography of the Brain. HISTORY: vertigo COMPARISON: None available. TECHNIQUE: CT angiography of the head and neck was performed following intravenous contrast administration. Coronal and sagittal maximum intensity projection reformatted images were generated. Contrast Dose: Omnipaque 350, 100 cc Radiation dose: Total exam DLP = 580.24 mGy-cm. This CT exam was performed using one or more of the following dose reduction techniques: Automated exposure control, adjustment of the mA and/or kV according to patient size, and/or use of iterative reconstruction technique. FINDINGS: INTERNAL CEREBRAL ARTERIES: Unremarkable. The skull base, petrous, cavernous and supraclinoid segments are bilaterally widely patent. ANTERIOR CEREBRAL ARTERIES: Unremarkable. A1 and A2 segments are widely patent. Smaller distal branches unremarkable, as visualized. MIDDLE CEREBRAL ARTERIES: Unremarkable. M1 and M2 segments are widely patent. Perisylvian branches grossly symmetric. POSTERIOR CIRCULATION: Basilar Artery: Variant branching related to the distal vertebral artery identified. Distal Vertebral Arteries: Unremarkable. Posterior Cerebral Arteries: Appear patent off a variant branch of the distal basilar artery Posterior Inferior Cerebellar Arteries: Unremarkable. NECK CTA: Common Carotid arteries: The bilateral common carotid appear widely patent from their origins to their bifurcations with no significant stenosis appreciated. No evidence to suggest common carotid artery dissection. Internal Carotid arteries: No significant stenosis is appreciated throughout the cervical internal carotid artery segments bilaterally and there is no evidence of dissection either. External Carotid arteries: Appear unremarkable bilaterally. Vertebral arteries: The bilateral vertebral arteries appear normal in caliber from their origins to their distal cervical segments. No significant stenosis or definite pattern of dissection. ANEURYSM/ VASCULAR MALFORMATIONS: None. OTHER FINDINGS: Incidental biapical emphysematous changes in the lungs. IMPRESSION: 1. No occlusion or significant stenosis in CT angiography of the Head and Neck. 2. Incidental biapical pulmonary emphysema.
[2018-07-24 17:25] VITALS: BP 131/80; TEMP 97.5; O2SAT 98
--- NOTE | 2018-07-24 20:26 | CARD ---
APPROVED REPORT Date of service: 07/24/2018 EXAM: Two-dimensional and M-mode echocardiogram with Doppler and color Doppler. INDICATION Dizziness and Vertigo 2D DIMENSIONS Left Atrium (2D)2.9 (1.6-4.0cm)IVSd0.9 (0.7-1.1cm) Aortic Root (2D)3.4 (2.0-3.7cm)LVDd4.3 (3.9-5.9cm) PWd1.1 (0.7-1.1cm)LVDs2.3 (2.5-4.0cm) FS (%) 46.9 %LVEF (%)78.6 (>50%) M-Mode DIMENSIONS Aortic Cusp Exc.1.90 (1.5-2.0cm) Mitral Valve MV E Wikiwslm51.7cm/sMV A Xzorlzfp82.5cm/sE/A ratio1.2 TDI Lateral E' Peak V10.40cm/sMedial E' Peak V8.68cm/sE/Lateral E'8.7 E/Medial E'10.4 Tricuspid Valve TR Peak Tgvlkrxm098vm/sRAP [id number] Peak Gr.25mmHg [id number] LEFT VENTRICLE The left ventricle is normal size. There is normal left ventricular wall thickness. The left ventricular function is normal. The left ventricular ejection fraction is within the normal range. There is normal LV segmental wall motion. Transmitral Doppler flow pattern is Grade II-pseudonormal filling dynamics. RIGHT VENTRICLE The right ventricle is normal size. There is normal right ventricular wall thickness. The right ventricular systolic function is normal. ATRIA The left atrium size is normal. The right atrium size is normal. AORTIC VALVE The aortic valve is normal in structure. No aortic regurgitation is present. There is no aortic valvular stenosis. MITRAL VALVE The mitral valve is normal in structure. Mitral regurgitation is trace. There is no mitral valve stenosis. TRICUSPID VALVE The tricuspid valve is normal in structure. There is trace to mild tricuspid regurgitation. PULMONIC VALVE There is trace pulmonic valvular regurgitation. GREAT VESSELS The aortic root is normal in size. The IVC is normal in size and collapses >50% with inspiration. <Conclusion> The left ventricle is normal size. There is normal left ventricular wall thickness. The left ventricular function is normal. The left ventricular ejection fraction is within the normal range. There is normal LV segmental wall motion. Transmitral Doppler flow pattern is Grade II-pseudonormal filling dynamics. Mitral regurgitation is trace.
--- NOTE | 2018-07-25 10:01 | CP.PCM.PN ---
Subjective - Date & Time of Evaluation Date of Evaluation: 07/25/18 Time of Evaluation: 10:01 Objective - Vital Signs/Intake and Output Vital Signs (last 24 hours): Temp Pulse Resp BP Pulse Ox 97.5 F L 48 L 20 131/80 98 07/24/18 17:24 07/25/18 05:44 07/24/18 17:24 07/24/18 17:24 07/24/18 17:24 - Medications Medications: Current Medications Aspirin (Ecotrin) 81 mg PO DAILY [facility] Last Admin: 07/25/18 09:18 Dose: 81 mg Cyanocobalamin (Vitamin B12 1000 Mcg Tab) 1,000 mcg PO DAILY [facility] Famotidine (Pepcid) 20 mg IVP DAILY [facility] Last Admin: 07/25/18 09:18 Dose: 20 mg Meclizine HCl (Antivert) 25 mg PO Q8 PRN PRN Reason: Dizziness Ondansetron HCl (Zofran Inj) 4 mg IVP Q8 PRN PRN Reason: Nausea/Vomiting - Labs Labs: 07/24/18 05:30 07/24/18 05:30 PT 11.2 SECONDS (9.4-12.5) 07/23/18 16:38 INR 0.98 07/23/18 16:38 APTT 27.8 Seconds (25.1-36.5) 07/23/18 16:38 Assessment and Plan (1) Dizziness Status: Acute (2) Nausea & vomiting Status: Acute
--- NOTE | 2018-07-25 11:41 | MRI ---
Date of service: 07/24/2018 PROCEDURE: MRI BRAIN WITHOUT CONTRAST HISTORY: r/o stroke COMPARISON: CT head without contrast from 07/23/2018. TECHNIQUE: Multiplanar, multisequence MR images of the brain were obtained without intravenous contrast enhancement. FINDINGS: HEMORRHAGE: None DWI: No evidence of an acute or early subacute infarction. BRAIN PARENCHYMA: There are mild chronic microangiopathic changes. There is no mass, mass effect or abnormal extra-axial fluid collection. There is no territorial infarction. The midline sagittal structures are normal. VENTRICLES: There is mild age-related global parenchymal volume loss and proportionate enlargement of the ventricles and cortical sulci. CRANIUM: There is normal bone marrow signal pattern. ORBITS: Grossly unremarkable. PARANASAL SINUSES/MASTOIDS: Predominantly clear. VASCULAR SYSTEM: There are normal signal voids in the larger intracranial arteries. OTHER FINDINGS: None. IMPRESSION: No acute intracranial abnormality. Mild chronic microangiopathic changes and mild age-related global parenchymal volume loss.
--- NOTE | 2018-07-25 12:32 | CP.PCM.PN ---
Subjective - Date & Time of Evaluation Date of Evaluation: 07/25/18 Time of Evaluation: 12:30 - Subjective Subjective: Mr. Pro was seen and examined today at bedside. He said that he does not feel dizzy, and was able to ambulate today without gait difficulty. He was bradycardic overnight. Objective - Vital Signs/Intake and Output Vital Signs (last 24 hours): Temp Pulse Resp BP Pulse Ox 97.5 F L 48 L 20 131/80 98 07/24/18 17:24 07/25/18 05:44 07/24/18 17:24 07/24/18 17:24 07/24/18 17:24 - Medications Medications: Current Medications Aspirin (Ecotrin) 81 mg PO DAILY [facility] Last Admin: 07/25/18 09:18 Dose: 81 mg Cyanocobalamin (Vitamin B12 1000 Mcg Tab) 1,000 mcg PO DAILY [facility] Last Admin: 07/25/18 10:27 Dose: 1,000 mcg Famotidine (Pepcid) 20 mg IVP DAILY [facility] Last Admin: 07/25/18 09:18 Dose: 20 mg Meclizine HCl (Antivert) 25 mg PO Q8 PRN PRN Reason: Dizziness Ondansetron HCl (Zofran Inj) 4 mg IVP Q8 PRN PRN Reason: Nausea/Vomiting - Labs Labs: 07/24/18 05:30 07/24/18 05:30 PT 11.2 SECONDS (9.4-12.5) 07/23/18 16:38 INR 0.98 07/23/18 16:38 APTT 27.8 Seconds (25.1-36.5) 07/23/18 16:38 - Constitutional Appears: Well - Head Exam Head Exam: ATRAUMATIC, NORMAL INSPECTION, NORMOCEPHALIC - Eye Exam Eye Exam: EOMI, Normal appearance, PERRL Pupil Exam: NORMAL ACCOMODATION, PERRL - ENT Exam ENT Exam: Mucous Membranes Moist, Normal Exam - Neck Exam Neck Exam: Full ROM, Normal Inspection. absent: Lymphadenopathy - Respiratory Exam Respiratory Exam: Clear to Ausculation Bilateral, NORMAL BREATHING PATTERN - Cardiovascular Exam Cardiovascular Exam: Bradycardia, +S1, +S2. absent: Murmur - GI/Abdominal Exam GI & Abdominal Exam: Soft, Normal Bowel Sounds. absent: Tenderness - Rectal Exam Rectal Exam: Deferred - Extremities Exam Extremities Exam: Full ROM, Normal Capillary Refill, Normal Inspection. absent: Joint Swelling, Pedal Edema - Back Exam Back Exam: NORMAL INSPECTION - Neurological Exam Neurological Exam: Alert, Awake, CN II-XII Intact, Normal Gait, Oriented x3 Neuro motor strength exam: Left Upper Extremity: 5, Right Upper Extremity: 5, Left Lower Extremity: 5, Right Lower Extremity: 5 - Psychiatric Exam Psychiatric exam: Normal Affect, Normal Mood - Skin Skin Exam: Dry, Intact, Normal Color, Warm Assessment and Plan (1) Peripheral vertigo Assessment & Plan: Improved with meclizine. Currently, not symptomatic. If symptoms return, I recommend Eply maneuver. PT/OT if needed. Status: Acute
[2018-07-25 13:36] VITALS: PULSE 54
--- NOTE | 2018-07-25 13:39 | US ---
PROCEDURE: Bilateral carotid artery duplex ultrasound HISTORY: Carotid stenosis PHYSICIAN(S): Shady Cunha MD. TECHNIQUE: Duplex sonography and color-flow Doppler were used to evaluate the carotid bifurcations and limited segments of the vertebral arteries bilaterally. FINDINGS: There is mild smooth heterogeneous plaque noted at the carotid bifurcations bilaterally. The peak systolic velocity in the proximal right internal carotid artery is 82 cm/sec. This corresponds to a 20 to 39% proximal right ICA stenosis. Normal systolic velocities are noted in the proximal right external carotid artery. There is antegrade flow in the right vertebral artery. The peak systolic velocity in the proximal left internal carotid artery is 74 cm/sec. This corresponds to a 20 to 39% proximal left ICA stenosis. Normal systolic velocities are noted in the proximal left external carotid artery. There is antegrade flow in the left vertebral artery. IMPRESSION: 1. Bilateral 20-39% proximal ICA stenoses. 2. Antegrade flow in both vertebral arteries.
--- NOTE | 2018-07-25 13:54 | CP.PCM.CON ---
History of Present Illness - History of Present Illness History of Present Illness: COVERING Dr. Estrada Awake, alert,no distress Reason for consultation: Cardiac evaluation of bradycardia Brief history of present illness: A 73 year old male who came in to the ER due to dizziness,nausea and vomiting. He had eaten at [facility] and ate pancakes and eggs. History of appendectomy. Current smoker half pack per day for 40 years. Consult was called for bradycardia. Seen and examined by me and Dr. Rubio Review of Systems - Review of Systems All systems: reviewed and no additional remarkable complaints except Review of Systems: as per HPI Past Patient History - Tetanus Immunizations Tetanus Immunization: Unknown - Past Social History Smoking Status: Light Smoker < 10 Cigarettes Daily - MUSCULOSKELETAL/RHEUMATOLOGICAL Hx Falls: No - PSYCHIATRIC Hx Substance Use: No - SURGICAL HISTORY Hx Surgeries: No - ANESTHESIA Hx Anesthesia: No Hx Anesthesia Reactions: No Hx Malignant Hyperthermia: No Meds Home Medications: Home Medication List Medication Instructions Recorded Confirmed Type Aspirin [Aspirin Chewable] 81 mg PO DAILY #30 ctb 07/24/18 Rx Cyanocobalamin [Vitamin B12 1000 1,000 mcg PO DAILY #30 tab 07/24/18 Rx mcg Tab] Aspirin [Ecotrin] 81 mg PO DAILY [facility] 07/25/18 Rx Meclizine [Meclizine*] 25 mg PO Q8 PRN #15 tab 07/25/18 Rx Ondansetron ODT [Zofran ODT] 4 mg PO Q4 #20 odt 07/25/18 Rx Allergies/Adverse Reactions: Allergies Allergy/AdvReac Type Severity Reaction Status Date / Time No Known Allergies Allergy Verified 07/23/18 14:52 - Medications Medications: Current Medications Aspirin (Ecotrin) 81 mg PO DAILY [facility] Last Admin: 07/25/18 09:18 Dose: 81 mg Cyanocobalamin (Vitamin B12 1000 Mcg Tab) 1,000 mcg PO DAILY [facility] Last Admin: 07/25/18 10:27 Dose: 1,000 mcg Famotidine (Pepcid) 20 mg IVP DAILY [facility] Last Admin: 07/25/18 09:18 Dose: 20 mg Meclizine HCl (Antivert) 25 mg PO Q8 PRN PRN Reason: Dizziness Ondansetron HCl (Zofran Inj) 4 mg IVP Q8 PRN PRN Reason: Nausea/Vomiting Physical Exam - Constitutional Appears: Non-toxic, No Acute Distress - Head Exam Head Exam: NORMAL INSPECTION, NORMOCEPHALIC - Eye Exam Eye Exam: Normal appearance Pupil Exam: NORMAL ACCOMODATION - ENT Exam ENT Exam: Mucous Membranes Moist, Normal Exam - Respiratory Exam Respiratory Exam: Clear to Auscultation Bilateral, NORMAL BREATHING PATTERN - Cardiovascular Exam Cardiovascular Exam: Bradycardia, +S1, +S2 - GI/Abdominal Exam GI & Abdominal Exam: Normal Bowel Sounds, Soft - Neurological Exam Neurological exam: Alert, Oriented x3 - Psychiatric Exam Psychiatric exam: Normal Affect, Normal Mood - Skin Skin Exam: Dry, Normal Color, Warm Results - Vital Signs Recent Vital Signs: Last Vital Signs Temp 97.5 F L 07/24/18 17:24 Pulse 54 L 07/25/18 10:00 Resp 20 07/24/18 17:24 BP 131/80 07/24/18 17:24 Pulse Ox 98 07/24/18 17:24 - Labs Result Diagrams: 07/24/18 05:30 07/24/18 05:30 Labs: Laboratory Results - last 24 hr 07/23/18 07/24/18 23:37 17:58 Hemoglobin A1c 5.3 Troponin I < 0.01 Assessment & Plan - Assessment and Plan (Free Text) Assessment: Brief history of present illness: A 73 ear old male who came in to the ER due to dizziness,nausea and vomiting. He had eaten at [facility] and ate pancakes and eggs. History of appendectomy.Denies any other medical history. Current smoker half pack per day for 40 years. Consult was called for bradycardia. Not on any betablocker. Echo done- LVEF 78%, Trace MR, Grade II transmitral doppler flow. Troponin 0.01 x 2 normal. Plan: Denies chest pain. no distress Bradycardia on telemetry 40's, patient asymptomatic Blood pressure stable If persist, will put on Holter monitor Echo done- normal EF On ASA 81 mg daily,Antivert 25 mg every 8 hours PRN Continue current treatment Continue current medications TSH and lipid profile normal Will follow up Further recommendations during hospital course Plan and treatment discussed with Dr. Rubio Thank you Dr. Perrin for the opportunity of taking care of Wander Pro Jr. Covering for Dr. Estrada - Date & Time Date: 07/25/18 Time: 13:00
--- NOTE | 2018-07-25 15:56 | CP.PCM.PN ---
Subjective - Date & Time of Evaluation Date of Evaluation: 07/25/18 Time of Evaluation: 08:30 - Subjective Subjective: PGY1 Medicine Progress Note for Dr. Perrin Patient was seen and evaluated this morning. Please note, Patient was discharged TODAY 07/25/18, as Patient complained of dizziness yesterday. Thus, further work- up was performed prior to discharge. Please see discharge note with addendum. Objective - Vital Signs/Intake and Output Vital Signs (last 24 hours): Temp Pulse Resp BP Pulse Ox 97.5 F L 54 L 20 131/80 98 07/24/18 17:24 07/25/18 10:00 07/24/18 17:24 07/24/18 17:24 07/24/18 17:24 - Labs Labs: 07/24/18 05:30 07/24/18 05:30 PT 11.2 SECONDS (9.4-12.5) 07/23/18 16:38 INR 0.98 07/23/18 16:38 APTT 27.8 Seconds (25.1-36.5) 07/23/18 16:38 - Head Exam Head Exam: ATRAUMATIC, NORMAL INSPECTION, NORMOCEPHALIC - Eye Exam Eye Exam: EOMI, Normal appearance, PERRL Pupil Exam: NORMAL ACCOMODATION - ENT Exam ENT Exam: Mucous Membranes Moist, Normal Exam - Neck Exam Neck Exam: Normal Inspection - Respiratory Exam Respiratory Exam: Clear to Ausculation Bilateral - Cardiovascular Exam Cardiovascular Exam: REGULAR RHYTHM - GI/Abdominal Exam GI & Abdominal Exam: Soft, Normal Bowel Sounds. absent: Tenderness - Extremities Exam Extremities Exam: Full ROM, Normal Capillary Refill, Normal Inspection - Back Exam Back Exam: NORMAL INSPECTION - Neurological Exam Neurological Exam: Alert, Awake, CN II-XII Intact, Oriented x3 - Psychiatric Exam Psychiatric exam: Normal Affect, Normal Mood - Skin Skin Exam: Dry, Intact, Normal Color, Warm Assessment and Plan (1) Dizziness Status: Acute (2) Nausea & vomiting Status: Acute - Assessment and Plan (Free Text) Assessment: Dizziness likely secondary to vertigo - improved with meclizine - Currently, not symptomatic. - Should symptoms return, perform Eply maneuver. - PT/OT eval and treat - MRI brain unremarkable for acute intracranial abnormalities - CTA unremarkable for acute intracranial abnormalities - CT head without contrast negative for acute intracranial abnormalities - Official imaging reports reviewed Nausea and Vomiting - improved Patient seen and case discussed in detail with Dr. Marychuy Jurado PGY1
--- NOTE | 2018-07-26 08:23 | CON ---
DATE: 07/25/2018 LOCATION: The patient is in room 363, bed 1. This consult is on behalf of Dr. Estrada whom we are covering. REASON FOR CONSULTATION: The patient has dizziness with vomiting, and found to have bradycardia. BRIEF HISTORY: The patient was admitted with episode of dizziness and with associated vomiting. The patient stated once he vomited, he felt much better. There is no history of chest pain, shortness of breath, palpitations associated with this episode. The patient's EKG on admission showed sinus rhythm with 66 per minute and the patient has episode of sinus bradycardia 48 per minute at 4:55 a.m. while he was sleeping, another episode of 52 per minute at 9:40 p.m. when he was sleeping, one episode of heart rate of 50 per minute at 4 a.m. while he was sleeping. At 1:34 p.m. heart rate was 50 and 11:10 a.m. heart rate was 54. So, none of these rhythms are of any significant bradycardia, it is mild form of bradycardia and the patient was throughout asymptomatic from this. So, I do not think this bradycardia is any significant. The patient already had echo, which showed normal LV function as per report of Dr. Estrada who read that echo. May be patient's dizziness with vomiting was vasovagal, anyhow right now, the patient clinically is stable. He wants to go home. So, I suggested him to do a Holter monitor at outpatient while he is ambulating and to do a nuclear stress test as outpatient just to complete cardiac workup because he is a smoker, and so for risk stratification, we should do a nuclear stress test and in the meantime, the patient insists to go home today. Cecy Rubio MD
== END 2018-07-25 15:12 | disposition home or self-care (01) ==
LOC: ED 14:45 → ERH 18:09 → 3RNO 23:52
PROVIDERS: ADMIT Internal Medicine; ATTEND Internal Medicine
DX: H81.399 Other peripheral vertigo, unspecified ear (principal); Z79.82 Long term (current) use of aspirin; Z82.3 Family history of stroke; Z82.5 Family history of asthma and other chronic lower respiratory diseases; F17.210 Nicotine dependence, cigarettes, uncomplicated; Z90.49 Acquired absence of other specified parts of digestive tract; R00.1 Bradycardia, unspecified
CPT/HCPCS: 36415; 70450; 70496; 70498; 70551; 71045; 80053; 80061; 81003; 82550; 82607; 83036; 83615; 83735; 84100; 84443; 84484; 85025; 85027; 85610; 85730; 93005; 93306; 93880; 97161; 99285; G0378; G8978; G8979; G8980; J2405; J7030; Q9967